=== PATIENT | female | born 1990 | race Caucasian/White ===

== ENCOUNTER → 2022-12-12 13:00 | Outpatient (BNVA) | payer OTHER, SELFPAY | PROVIDERS: Visit Provider Nurse Practitioner Women's Health | DX: N92.6 Irregular menstruation, unspecified (principal); Z01.419 Encounter for gynecological examination (general) (routine) without abnormal findings | CPT/HCPCS: 84146; 84443; 84702; 87624 ==

== ENCOUNTER → 2022-12-20 08:11 | Outpatient (BNVA) | payer OTHER, SELFPAY | PROVIDERS: Visit Provider Nurse Practitioner Women's Health | DX: N92.6 Irregular menstruation, unspecified (principal); N83.8 Other noninflammatory disorders of ovary, fallopian tube and broad ligament | CPT/HCPCS: 76830 ==

== ENCOUNTER 2023-06-07 09:32 | Outpatient (CLI) | payer OTHER, SELFPAY ==
--- NOTE | 2023-06-07 10:00 | MM_ITS ---
WS: [id number] Bilateral diagnostic 3D tomosynthesis digital mammogram, 06/07/2023 Clinical Data: N64.4 - Mastodynia Comparison: None. Findings: There are 2 areas of minimal pain on the right breast and one of the left breast. The areas on the ri ght breast are at 12:00 and 1:00. The area of the left breast is at 2:00. No spiculated masses nor cl ustered calcifications are seen. There are no secondary signs of carcinoma. There is minimal fibrogla ndular tissue in the upper outer quadrant of the left breast but it is benign in appearance. Impression: 1. In negative bilateral mammogram with no prior exam for review. 2. Right and left breast ultrasound will be performed. MM/[place] [id number] BIRADS: 2-Benign FOLLOW UP: See Report The CAD cargo checker was used.
--- NOTE | 2023-06-07 10:30 | US_ITS ---
WS: [id number] Bilateral breast ultrasound, 06/07/2023 Clinical Data: N64.4 - Mastodynia Comparison: Mammogram, 06/07/2023 Findings: Imaging of the right breast at the 12 o'clock position shows only normal breast tissue. There are no cysts or masses. Imaging of the right breast at the 1 o'clock position shows a small lesion measuring 0.7 x 0.9 cm. It has a well-defined border and is longer than it is high. The internal echoes are of mixed echogenici ty. There is no through transmission. Imaging of the left breast in the 2 o'clock position shows no abnormalities. No cysts or masses are s een. There is only normal breast tissue. Impression: 1. Only normal breast tissue is seen at the 12 o'clock position of the right breast and the 2 o'clock position of the left breast. 2. Small probably benign 0.7 x 0.9 cm well bordered lesion in the 1 o'clock position of the right aaliyah ast and recommend no further imaging. 3. Recommend clinical follow-up. US/US breast BI limited* [id number] BIRADS: 2-Benign FOLLOW UP: See report.
== END 2023-06-07 09:33 | disposition home or self-care (01) ==
LOC: RAD 09:33
PROVIDERS: Visit Provider Nurse Practitioner Women's Health
DX: N64.4 Mastodynia (principal); N64.9 Disorder of breast, unspecified
CPT/HCPCS: 76642; 77062; G0279

== ENCOUNTER → 2023-12-18 12:40 | Outpatient (BNVA) | payer OTHER, SELFPAY | PROVIDERS: PCP Nurse Practitioner Family; Visit Provider Nurse Practitioner Women's Health | DX: Z12.4 Encounter for screening for malignant neoplasm of cervix (principal) | CPT/HCPCS: 87624 ==

== ENCOUNTER 2024-12-01 13:31 | Outpatient (RCR) | payer OTHER, SELFPAY | END 2024-12-15 23:59 | disposition home or self-care (01) | LOC: CR 13:31 | PROVIDERS: PCP Nurse Practitioner Family; Referring Provider Internal Medicine Cardiovascular Disease; Visit Provider Internal Medicine Cardiovascular Disease | DX: I25.10 Atherosclerotic heart disease of native coronary artery without angina pectoris (principal) | CPT/HCPCS: 93798 ==

== ENCOUNTER 2024-12-16 12:40 | Outpatient (RCR) | payer OTHER, SELFPAY | END 2025-01-15 23:59 | disposition home or self-care (01) | LOC: CR 12:40 | PROVIDERS: PCP Nurse Practitioner Family; Referring Provider Internal Medicine Cardiovascular Disease; Visit Provider Internal Medicine Cardiovascular Disease | DX: I25.10 Atherosclerotic heart disease of native coronary artery without angina pectoris (principal) | CPT/HCPCS: 93798 ==

== ENCOUNTER 2025-01-16 12:55 | Outpatient (RCR) | payer OTHER, SELFPAY | END 2025-02-14 23:59 | disposition home or self-care (01) | LOC: CR 12:55 | PROVIDERS: PCP Nurse Practitioner Family; Referring Provider Internal Medicine Cardiovascular Disease; Visit Provider Internal Medicine Cardiovascular Disease | DX: I25.10 Atherosclerotic heart disease of native coronary artery without angina pectoris (principal) | CPT/HCPCS: 93798 ==

== ENCOUNTER 2025-02-15 09:19 | Outpatient (RCR) | payer OTHER, SELFPAY | END 2025-03-17 23:59 | disposition home or self-care (01) | LOC: CR 09:19 | PROVIDERS: PCP Nurse Practitioner Family; Referring Provider Internal Medicine Cardiovascular Disease; Visit Provider Internal Medicine Cardiovascular Disease | DX: I25.10 Atherosclerotic heart disease of native coronary artery without angina pectoris (principal) | CPT/HCPCS: 93798 ==